=== PATIENT | female | born 1985 | race Caucasian/White ===

== ENCOUNTER 2016-06-15 20:29 | Emergency (ER) | payer MEDICAID ==
[~2016-06-15] VITALS: Ht 165.1 cm; Wt 62.4 kg
[~2016-06-15 20:29] MED LIST: ALBU0.63 NEB; ALPR1TAB10 PO; ASPI-621 PO; CARV3.122 PO; CARV6.2512 PO; CIPR500T87 PO; FLUO20CA19 PO; FLUO40CA9 PO; HYDR-3144 PO; LORA-446 PO; LOSA25TA5 PO; LURA80TA PO; ZOLP10TA PO
[2016-06-15] MEDS ORDERED: SODIUM CHLORIDE FLUSH 10ML SYR IVF ONE (21:30)
[2016-06-15] MEDS ORDERED: SODIUM CHLORIDE 0.9% 1,000ML IVBOLUS ONE (21:30)
[2016-06-15] MEDS ORDERED: ONDANSETRON 2MG/ML, 2ML IVPush ONE (21:30)
[2016-06-15] MEDS ORDERED: ONDANSETRON 2MG/ML, 2ML ONE (21:32)
[2016-06-15 21:48] LABS: HEMOGLOBIN 12.3 g/dL (11.7-16.4)
[2016-06-15 21:58] LABS: ASPARTATE AMINO TRANSFERASE 22 U/L (15-37); BLOOD UREA NITROGEN 14 mg/dL (7-18)
[2016-06-15 22:05] LABS: IS PT STATUS REG ER OR PRE ER? YES
[2016-06-15 23:05] LABS: DAU SCREEN DISCLAIMER
[2016-06-16 00:15] VITALS: BP 132/68
== END 2016-06-16 00:36 | disposition home or self-care (01) ==
LOC: ED 22:02 → EDIP 22:09 → UNDOADMIN 22:09 → ED 06-16 00:36
DX: E86.0 Dehydration (principal); R10.84 Generalized abdominal pain; R07.89 Other chest pain; F15.10 Other stimulant abuse, uncomplicated; F11.10 Opioid abuse, uncomplicated; J45.909 Unspecified asthma, uncomplicated; I50.9 Heart failure, unspecified; F41.1 Generalized anxiety disorder; Z98.51 Tubal ligation status; Z88.0 Allergy status to penicillin; Z88.8 Allergy status to other drugs, medicaments and biological substances; F17.210 Nicotine dependence, cigarettes, uncomplicated
CPT/HCPCS: 36415; 71010; 80053; 80307; 81001; 83605; 83690; 84484; 85025; 85379; 85610; 85730; 87086; 93005; 96361; 96374; 99285; J2405; J7030

== ENCOUNTER 2016-12-16 14:40 | Emergency (ER) | payer MEDICAID ==
[~2016-12-16] VITALS: Ht 165.1 cm; Wt 52.0 kg
[~2016-12-16 14:40] MED LIST changes: -HYDR-3144 PO; +HYDR-3245 PO
[2016-12-16] MEDS ORDERED: SODIUM CHLORIDE FLUSH 10ML SYR IVF ONE ×2 (15:30→17:00)
[2016-12-16] MEDS ORDERED: SODIUM CHLORIDE 0.9% 1,000ML IVBOLUS ONE ×2 (15:30→17:00)
[2016-12-16] MEDS ORDERED: PROCHLORPERAZINE 5 MG/ML, 2ML IVPush ONE (15:30)
[2016-12-16] MEDS ORDERED: DIPHENHYDRAMINE 50 MG/ML, 1ML IVPush ONE (15:30)
[2016-12-16 15:34] LABS: HEMOGLOBIN 13.2 g/dL (11.7-16.4); WHITE BLOOD COUNT 6.7 x10^3/uL (3.4-10)
[2016-12-16 15:45] LABS: BLOOD UREA NITROGEN 18 mg/dL (7-18)
[2016-12-16] MEDS ORDERED: PROCHLORPERAZINE 5 MG/ML, 2ML ONE (16:31)
[2016-12-16] MEDS ORDERED: DIPHENHYDRAMINE 50 MG/ML, 1ML ONE (16:32)
[2016-12-16] MEDS ORDERED: MORPHINE SULFATE 4 MG/ML, 1ML ONE (16:33)
[2016-12-16] MEDS ORDERED: ONDANSETRON 2MG/ML, 2ML ONE (16:33)
[2016-12-16] MEDS ORDERED: ONDANSETRON 2MG/ML, 2ML IVPush ONE (17:00)
[2016-12-16] MEDS ORDERED: MORPHINE SULFATE 4 MG/ML, 1ML IVPush PRN (17:00)
[2016-12-16 18:42] VITALS: BP 117/65
== END 2016-12-16 18:45 | disposition home or self-care (01) ==
LOC: ED 18:39
DX: G44.309 Post-traumatic headache, unspecified, not intractable (principal); J45.909 Unspecified asthma, uncomplicated; I50.9 Heart failure, unspecified
CPT/HCPCS: 36415; 70450; 80048; 82040; 85025; 96361; 96374; 96375; 99285; J0780; J1200; J2405; J7030